=== PATIENT | female | born 1940 | race Caucasian/White ===

== ENCOUNTER 2020-02-04 11:17 | Outpatient (CLI) | payer MEDICARE, BC ==
--- NOTE | 2020-02-04 11:38 | RAD ---
XR Hand Rt 3 View STANDARD HISTORY: Dog bite. COMPARISON: None. FINDINGS: There is soft tissue swelling of the index finger. No underlying foreign body. No fracture. No evidence for osteomyelitis. Minimal arthritic changes of the hand are noted. IMPRESSION: Soft tissue swelling of the index finger.
== END 2020-02-04 11:18 | disposition home or self-care (01) ==
LOC: MADRAD 11:17
PROVIDERS: ATTEND Family Medicine
DX: L02.511 Cutaneous abscess of right hand (principal); M79.89 Other specified soft tissue disorders; W54.0XXA Bitten by dog, initial encounter
CPT/HCPCS: 87070; 87077; 87205

== ENCOUNTER 2020-10-21 15:57 | Outpatient (CLI) | payer MEDICARE, BC ==
--- NOTE | 2020-10-21 16:17 | RAD ---
EXAM: Two views chest PROVIDED CLINICAL HISTORY: Acute bronchitis. Covid exposure COMPARISON: 01/27/2020 FINDINGS: Cardiac silhouette and pulmonary vasculature are within normal limits. Mild chronic lung changes inc luding mild symmetric biapical pleural and parenchymal scarring is present. Minimal focal area of scarring at the left lung base is present. No consolidation or pleural fluid is identified. Remote le ft-sided rib fractures are seen, and there is osteopenia. Vascular calcifications are seen in the thoracic aorta. Burst fracture L1 vertebral body is seen, and there is a stable degree of height loss compared to prior MRI lumbar spine on 09/03/2020. IMPRESSION: 1. No acute cardiopulmonary process. 2. Remote left-sided rib fractures as well as stable remote L1 vertebral body burst fracture.
== END 2020-10-21 15:58 | disposition home or self-care (01) ==
LOC: MADRAD 15:57
PROVIDERS: ATTEND Family Medicine
DX: J20.9 Acute bronchitis, unspecified (principal)
CPT/HCPCS: 71046

== ENCOUNTER 2021-05-26 14:51 | Outpatient (CLI) | payer MEDICARE, BC ==
[2021-05-26 15:15] LABS: #Basophils 0.1 thou/uL (0.0-0.2); #Eosinphils 0.1 thou/uL (0.0-0.7); #Lymphocytes 2.9 thou/uL (1.20-3.40); #Monocytes 0.6 thou/uL (0.11-0.59); #Neutrophils 3.7 thou/uL (1.40-6.50); %Basophils 1.6 % (0.0-1.0); %Eosinophils 1.3 % (0.0-10.0); %Lymphocytes 39.2 % (21.0-51.0); %Monocytes 7.6 % (0.0-10.0); %Neutrophils 50.3 % (42.0-75.0); Hemoglobin 12.3 g/dL (12.0-16.0); Mean Corpuscular HGB CONC 30.8 g/dL (32.0-36.0); Mean Corpuscular Hemoglobin 27.2 pg (27.0-31.0); Mean Corpuscular Volume 88.2 fL (78.0-98.0); Mean Platelet Volume 7.6 fL (7.4-10.4); Platelet Count 344 thou/uL (130-400); RBC Distribution Width 17.1 % (11.5-14.5); Red Blood Cell (RBC) Count 4.53 mill/uL (4.20-5.40); White Blood Cell (WBC) Count 7.4 thou/uL (4.8-10.8)
[2021-05-26 15:57] LABS: ALT (SGPT) 13 U/L (8-55); AST (SGOT) 19 U/L (5-34); Albumin 4.3 g/dL (3.4-4.8); Alkaline Phosphatase 140 U/L (40-110); Anion Gap 15 mmol/L (10-20); BUN (Urea Nitrogen) 14 mg/dL (9.8-20.1); Bilirubin, Total 0.4 mg/dL (0.2-1.2); Calc. Creatinine Clearance 0 mL/min (70-130); Calcium 9.6 mg/dL (7.8-10.44); Carbon Dioxide 22 mmol/L (23-31); Chloride 106 mmol/L (98-107); Globulin 2.7 g/dL (2.4-3.5); Glucose 141 mg/dL (83-110); Potassium 4.3 mmol/L (3.5-5.1); Sodium 139 mmol/L (136-145)
== END 2021-05-26 14:52 | disposition home or self-care (01) ==
LOC: MADERS 14:51
PROVIDERS: ATTEND Family Medicine
DX: I10 Essential (primary) hypertension (principal); D63.8 Anemia in other chronic diseases classified elsewhere
CPT/HCPCS: 36415; 80053; 82728; 85025

== ENCOUNTER 2022-08-04 11:23 | Outpatient (CLI) | payer MEDICARE, BC ==
[2022-08-04 11:51] LABS: #Basophils 0.1 thou/uL (0.0-0.2); #Eosinphils 0.1 thou/uL (0.0-0.7); #Lymphocytes 2.3 thou/uL (1.20-3.40); #Monocytes 0.3 thou/uL (0.11-0.59); #Neutrophils 1.9 thou/uL (1.40-6.50); %Basophils 2.6 % (0.0-1.0); %Monocytes 6.7 % (0.0-10.0); %Neutrophils 39.7 % (42.0-75.0); Hemoglobin 12.2 g/dL (12.0-16.0); Mean Corpuscular HGB CONC 30.9 g/dL (32.0-36.0); Mean Corpuscular Hemoglobin 27.9 pg (27.0-31.0); Mean Corpuscular Volume 90.5 fL (78.0-98.0); Mean Platelet Volume 7.4 fL (7.4-10.4); Platelet Count 278 thou/uL (130-400); RBC Distribution Width 13.9 % (11.5-14.5); Red Blood Cell (RBC) Count 4.39 mill/uL (4.20-5.40); White Blood Cell (WBC) Count 4.7 thou/uL (4.8-10.8)
[2022-08-04 11:59] LABS: ALT (SGPT) 7 U/L (8-55); AST (SGOT) 18 U/L (5-34); Albumin 4.1 g/dL (3.4-4.8); Alkaline Phosphatase 122 U/L (40-110); Anion Gap 11 mmol/L (10-20); BUN (Urea Nitrogen) 13 mg/dL (9.8-20.1); Bilirubin, Total 0.6 mg/dL (0.2-1.2); Calc. Creatinine Clearance 0 mL/min (70-130); Carbon Dioxide 27 mmol/L (23-31); Chloride 107 mmol/L (98-107); Estimated GFR 71; Globulin 2.9 g/dL (2.4-3.5); Glucose 83 mg/dL (83-110); Potassium 4.2 mmol/L (3.5-5.1); Sodium 141 mmol/L (136-145)
[2022-08-04 17:40] LABS: Ferritin 15.46 ng/mL (10-291)
[2022-08-04 17:48] LABS: Vitamin D, 25 Hydroxy 13.8 ng/ml (> 30.0)
== END 2022-08-04 11:24 | disposition home or self-care (01) ==
LOC: MADLABBHPM 11:23 → MADLAB 11:24
PROVIDERS: ATTEND Family Medicine
DX: M81.0 Age-related osteoporosis without current pathological fracture (principal); D72.819 Decreased white blood cell count, unspecified; D63.8 Anemia in other chronic diseases classified elsewhere
CPT/HCPCS: 80053; 82306; 82728; 85025